=== PATIENT | male | born 1965 | race Caucasian/White ===

== ENCOUNTER 2016-08-03 00:59 | Emergency (ER) | payer OTHER ==
[~2016-08-03 00:59] MED LIST: ATARAX PO; DILANTIN; DILANTIN PO; LORTAB 10/500 T1 TAB
== END 2016-08-03 02:24 | disposition home or self-care (01) ==
LOC: SED 00:59
DX: S16.1XXA Strain of muscle, fascia and tendon at neck level, initial encounter (principal); F41.9 Anxiety disorder, unspecified; F17.210 Nicotine dependence, cigarettes, uncomplicated; X50.9XXA Other and unspecified overexertion or strenuous movements or postures, initial encounter; Y92.009 Unspecified place in unspecified non-institutional (private) residence as the place of occurrence of the external cause
CPT/HCPCS: 96372; 99283; J1885; J3360

== ENCOUNTER 2016-08-28 11:57 | Inpatient (IN) | payer OTHER ==
--- NOTE | ~2016-08-28 | CO ---
Unit #: [id number] #: [id number] Patient: ROSEANN CASTANEDA [id number] [facility]. [place], [place] [address] [id number] I MR#: [id number] NAME: ROSEANN CASTANEDA ROOM: 241 Age: 51 Sex: M Admission Date: 08/28/2016 : 1965 Attending Physician: Franny Rg M.D. Primary Care Physician: Adilene Alvarez M.D. Consultation Date: 08/29/2016 CONSULTATION REPORT HISTORY OF PRESENT ILLNESS Mr. Castaneda is 51-year-old white male with a spontaneous left hip abscess. It is fairly large. He did not note anything that bite him. He said this started out as a small pimple and got larger and now it is a large abscess. He has a history of drug abuse; however, this is in an area that does not appear to be related to his drug habits. PAST MEDICAL HISTORY He has had a previous seizure disorder and psychiatric history as noted. ALLERGIES None. HOME MEDICATIONS None. REVIEW OF SYSTEMS Otherwise is noncontributory. He does smoke one pack per day. PHYSICAL EXAMINATION GENERAL: Cooperative, alert, white male. Oriented x3, in no significant distress. ENT: Clear. There is no jaundice. Pupils equal, reactive to light. CHEST: Grossly clear. CARDIAC: Rhythm is regular. ABDOMEN: Soft, nontender. The area in questions over the left hip is large abscess partially drained in the emergency room with a great amount of purulence. This needs to be opened and cleaned out. PLAN We will go ahead and proceed with doing just that and cleaning up this abscess. Risks had been explained to the patient. He understands. Dictated by... Huan Sun M.D. KEN/jacqui TD: 08/29/2016 06:47 JOB #: [id number] Unit #: [id number] #: [id number] Patient: ROSEANN CASTANEDA CONSULTATION REPORT Page 1 of 1 X Huan Sun MD CONSULTATION REPORT
--- NOTE | ~2016-08-28 | CT90 ---
[facility] A Service of [facility] RADIOLOGY TEXT RESULTS PATIENT: ROSEANN CASTANEDA LOCATION: C2A 241-01 : [birth year] UNIT #: [id number] AGE: [address]: Sarah Estes MD SEX: M ORDER DR: [id number] [facility] [address] [place], [place] [address] [id number] I MR#: [id number] Acc #: [id number] NAME: ROSEANN CASTANEDA : 1965 SEX: M STUDY DATE/TIME: 08/28/2016 15:22 UNIT: C2A ROOM: 241 STUDY DESCRIPTION: CT Lower Ext Lt W Cont Attending Physician: Sarah Estes M.D. Ordering Physician: Norbert Mendieta M.D. Primary Care Physician: Adilene Alvarez M.D. MEDICAL IMAGING REPORT This report is preliminary unless electronic signature is present EXAM CT left hip and pelvis. HISTORY Pain and warmth left hip x1 week, heroin abuse, seizures. FINDINGS Axial images performed through the left hip and pelvis following IV contrast. Markers were placed corresponding to the area of redness and swelling. This CT exam was performed with one or more of the following radiation dose reduction techniques: automatic exposure control, adjustment of mA and/or kV according to patient size, and iterative reconstruction. The examination demonstrates skin thickening and extensive subcutaneous edema and reticulation along the lateral aspect of the left hip and pelvis. Centered just above the left hip joint, there is a 5.1 x 1.6 x 3.9 cm area of subtle decreased attenuation with questionable early peripheral enhancement that could represent an area of phlegmon and/or developing abscess but a discrete well-defined drainable fluid collection is not seen. The inflammatory process appears confined to the subcutaneous space. Underlying gluteal musculature appears normal. The hip joints appear normal. The internal pelvic structures unremarkable. IMPRESSION Extensive soft tissue swelling and edema overlying the lateral hip. Findings most compatible with extensive cellulitis. There is a subtle area of low attenuation within the subcutaneous tissues measuring about 5.1 x 1.6 x 3.9 cm, could represent a developing phlegmon or early abscess but a discrete drainable or well defined drainable fluid collection is not identified. No deep compartment involvement. [facility]. [facility] A Service of [facility] RADIOLOGY TEXT RESULTS PATIENT: ROSEANN CASTANEDA LOCATION: [facility] 241-01 : [birth year] UNIT #: [id number] AGE: [address]: Sarah Estes MD SEX: M ORDER DR: Dictated by... Catalino Borja M.D. THIS IS AN ELECTRONICALLY VERIFIED REPORT Catalino Borja M.D. at 08/28/2016 8:29 PM Monica TD: 08/28/2016 19:58 JOB #: [id number] MEDICAL IMAGING REPORT Page 1 of 1 COPY
--- NOTE | ~2016-08-28 | DS ---
Unit #: [id number] #: [id number] Patient: ROSEANN CASTANEDA [id number] [address] [place], [place] [address] [id number] I MR#: [id number] NAME: ROSEANN CASTANEDA ROOM: 241 Age: 51 Sex: M Admission Date: 08/28/2016 : 1965 Discharge Date: 08/31/2016 Attending Physician: Franny Rg M.D. Primary Care Physician: Adilene Alvarez M.D. DISCHARGE SUMMARY ADMISSION DIAGNOSES 1. Left hip abscess/cellulitis. 2. Sepsis. 3. History of IV drug use. 4. History of seizures. 5. Tobacco abuse. DISCHARGE DIAGNOSES 1. Status post incision and drainage of left hip abscess. 2. Methicillin-resistant Staphylococcus aureus infection left hip. 3. Sepsis, resolved. 4. History of intravenous drug abuse. 5. Polysubstance abuse. 6. Tobacco use. 7. History of seizures. CONSULTANTS Dr. King Morse, [facility]. PROCEDURES 1. Midline placement for venous access. 2. I and D left hip abscess with sharp excisional debridement of skin and subcutaneous tissue and muscle 10 x 8 cm area. DIAGNOSTIC STUDIES LABORATORY: WBC 9.7, hemoglobin 12.8, hematocrit 37.8, platelets 301,000. Sodium 138, potassium 3.9, chloride 103, CO2 28, glucose 116, BUN 9, creatinine 0.9, calcium 8.2, AST 22, ALT 29, alkaline phosphatase 66, bili total 0.7, total protein 6, albumin 2.9. Urine culture final - No growth at 24 hours. Blood cultures preliminary x2 - No growth after 24 hours. Aerobic left hip swab - MRSA 2+. Anaerobic culture preliminary - No growth of anaerobes at 48 hours. HIV antigen antibody screen nonreactive. Anatomical pathology report abscess left hip debridement - Focally ulcerated segment of skin and subcutaneous tissue with acute inflammatory cell infiltrate with abscess formation. Urine drug screen positive for amphetamines and opiates. Lactic acid 0.8. IMAGING: CT of the left hip and pelvis with IV contrast. Impression - Extensive soft tissue swelling and edema overlying the lateral hip. Findings most compatible with extensive cellulitis. Subtle area of low attenuation within the subcutaneous tissues measuring about 5.1 x 1.6 x 3.9 cm could represent a developing phlegmon or early abscess, but a discrete drainable or well-defined drainable fluid collection is not identified. No deep compartment involvement. Unit #: [id number] #: [id number] Patient: ROSEANN CASTANEDA DISCHARGE MEDICATIONS Bactrim DS 1 p.o. b.i.d. x10 days (#20, no refills). DRESSING CHANGE ORDERS Dakin's wet-to-dry, 1/4 strength, b.i.d. using Fluff to pack - Sent bedside supply home with the patient. DISCHARGE INSTRUCTIONS 1. Continue dressing changes per order of [facility]. Patient is to follow up in Dr. Sun's wound clinic ([phone]) in 7-10 days. 2. Discontinue midline prior to discharge. 3. The patient has been given an order for [facility] health, if the patient is agreeable, to follow for wound care and dressing supplies. 4. The patient is to be provided initial amount of dressing supplies prior to discharge. 5. This patient is to call and schedule followup appointment with his primary care physician in 7 days. CONDITION Stable. DISPOSITION Home. HOSPITAL COURSE The patient is a 51-year-old male who presented to [facility] on the day of admission with complaints of an increasingly red, swollen and painful area on the left hip. Additionally, he complained that it was draining yellow pus. The patient was noted to have a white blood cell count of 13.6, pulse of 92, and temperature was 98.2. The patient was started on IV vancomycin and received one liter of normal saline in the emergency department. I and D was done in the emergency department, and packing was placed there, as well. The patient was admitted for further evaluation and management of left hip abscess with cellulitis, as well as sepsis. Please refer to history and physician report for complete details. Patient continued to be followed by [facility] for evaluation and management of left hip abscess. The patient progressed well and is afebrile with stable vital signs at this time. The patient has been evaluated by Dr. Morse this morning. The patient has also been evaluated by the hospitalist service in discussion with Dr. Rg. Patient is stable and cleared for discharge home with discharge instructions and followup as dictated above. Dictated by... Vida Morris A.P.R.N. for Joel Saba/erich TD: 09/02/2016 12:12 JOB #: [id number] Unit #: [id number] #: [id number] Patient: ROSEANN CASTANEDA DISCHARGE SUMMARY Page 1 of 1 X Vida Morris APRN X DISCHARGE SUMMARY
--- NOTE | ~2016-08-28 | OR ---
Unit #: [id number] #: [id number] Patient: ROSEANN CASTANEDA [id number] [address] [place], [place] [address] [id number] I MR#: [id number] NAME: ROSEANN CASTANEDA ROOM: 241 Date of Procedure: 08/29/2016 Admission Date: 08/28/2016 Surgeon: King Morse M.D. : 1965 Attending Physician: Franny Rg M.D. Primary Care Physician: Adilene Alvarez M.D. OPERATIVE REPORT PREOPERATIVE DIAGNOSIS Abscess, left hip. POSTOPERATIVE DIAGNOSIS Abscess, left hip. PROCEDURE PERFORMED Incision and drainage of left hip abscess with sharp excisional debridement of skin and subcutaneous tissue, and muscle 10 x 8 cm area. ANESTHESIA Monitored anesthesia care. FINDINGS The patient was found to have a large abscess with necrotic tissue present in the area of the left hip. They were sharply debrided back to viable tissue. SPECIMENS Sent to microbiology and pathology. COMPLICATIONS None apparent. CONDITION The patient tolerated the procedure well. INDICATIONS FOR PROCEDURE The patient is a 51-year-old white male, who developed an abscess over the last several days of the left hip area. A CT scan confirmed this. He presents at this time for incision and drainage and debridement. DESCRIPTION OF PROCEDURE After obtaining informed consent as well as receiving preoperative antibiotics, the patient was brought to the operating room and after adequate general LMA anesthesia was obtained, he was carefully placed into the right lateral decubitus position with left side up and right side down. The patient was secured with a beanbag. An axillary roll was placed and all extremities were manipulated very carefully and all extremities were carefully padded. The left hip area was prepped and draped in a sterile fashion. An incision was made over the area of the abscess. A large cavity was entered. Cultures were sent. An incision Unit #: [id number] #: [id number] Patient: ROSEANN CASTANEDA was made circumferentially with a scalpel and was taken down through the skin and subcutaneous tissues with scalpel and was sharply debrided as was some of the underlying musculature. There was necrotic tissue present. Debridement was taken back to viable tissue circumferentially. The wound was irrigated. Hemostasis was obtained with the Bovie. All areas were infiltrated with 0.5% Marcaine plain local anesthesia. The incision was packed with a saline soaked fluffs as well as covered with a dry dressing and then tape. Needle counts, sponge counts, and instrument counts were all correct as reported by the scrub nurse x2. The patient went from the operating room to recovery room in stable condition. Dictated by... Joel Goodman/jacqui TD: 08/30/2016 02:11 JOB #: [id number] CC: [facility] OPERATIVE REPORT Page 1 of 1 X King Morse MD X PROCEDURE OPERATIVE NOTE
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
[2016-08-28 12:52] LABS: BASOPHIL# 0.1 X10e3 (0-0.3); BASOPHIL% 0.8 % (0-2.5); EOSINOPHIL# 0.1 X10e3 (0-0.7); EOSINOPHIL% 0.7 % (0.0-7.0); HEMATOCRIT 43.5 % (38.0-50.0); HEMOGLOBIN 14.8 gm/dL (13.0-16.0); LYMPHOCYTE# 2.1 X10e3 (1.0-3.5); LYMPHOCYTE% 15.7 % (17.0-45.0); MEAN CELL VOLUME 88.3 FL (83-96); MEAN CORPUSCULAR HEMOGLOBIN 30.1 PG (28-34); MEAN CORPUSCULAR HGB CONC 34.1 g/dL (30-36); MEAN PLATELET VOLUME 6.6 FL (6.5-11.5); MONOCYTE# 1.6 X10e3 (0-1.0); MONOCYTE% 11.8 % (3.0-12.0); NEUTROPHIL# 9.6 X10e3 (1.5-7.1); PLATELET COUNT 294 X10e3 (140-420); RED BLOOD COUNT 4.93 X10e (3.90-5.60); RED CELL DISTRIBUTION WIDTH 13.1 % (11.0-15.5); WHITE BLOOD COUNT 13.6 X10e3 (4.0-10.5)
[2016-08-28 13:01] LABS: DIFF IND NO
[2016-08-28 13:36] LABS: ALBUMIN SERUM 3.5 g/dL (3.5-5.0); BILIRUBIN, DIRECT 0.1 mg/dL (0.0-0.2); BILIRUBIN,INDIRECT 0.4 mg/dL (0.0-0.9); BILIRUBIN,TOTAL 0.5 mg/dL (0.2-2.0); BUN/CREATININE RATIO 18.75; CALCIUM SERUM 8.9 mg/dL (8.4-10.2); CREATININE SERUM 0.8 mg/dL (0.6-1.4); GLOM FILT RATE Estimated 104.9 mL/min (>60); POTASSIUM 4.3 mmol/L (3.5-5.1); PROTEIN TOTAL SERUM 7.1 g/dL (6.0-8.3)
[2016-08-28] MEDS ORDERED: NO MEDICATIONS (14:13)
[2016-08-28 21:53] LABS: URINE APPEARANCE CLEAR; URINE BILIRUBIN NEG (NEG); URINE BLOOD NEG (NEG); URINE COLOR YELLOW; URINE GLUCOSE NEG (NEG); URINE KETONE NEG (NEG); URINE LEUKOCYTE ESTERASE NEG (NEG); URINE NITRATE NEG (NEG); URINE PH 7.5 (5-8); URINE PROTEIN NEG (NEG); URINE SPECIFIC GRAVITY 1.023 (1.003-1.035)
[2016-08-28 22:07] LABS: AMPHETAMINE POS (NEG); BARBITURATES NEG (NEG); BENZODIAZEPINES NEG (NEG); COCAINE NEG (NEG); MARIJUANA NEG (NEG); OPIATES POS (NEG); TRICYCLIC ANTIDEPRESSANTS NEG (NEG); U METHADONE NEG (NEG)
[2016-08-29 05:24] LABS: HEMOGLOBIN 13.8 gm/dL (13.0-16.0); MEAN CELL VOLUME 88.6 FL (83-96); MEAN CORPUSCULAR HEMOGLOBIN 29.9 PG (28-34); MEAN CORPUSCULAR HGB CONC 33.7 g/dL (30-36); MEAN PLATELET VOLUME 6.7 FL (6.5-11.5); RED BLOOD COUNT 4.63 X10e (3.90-5.60); RED CELL DISTRIBUTION WIDTH 13.3 % (11.0-15.5); WHITE BLOOD COUNT 9.3 X10e3 (4.0-10.5)
[2016-08-29 06:27] LABS: BUN/CREATININE RATIO 16.25; CALCIUM SERUM 8.5 mg/dL (8.4-10.2); CREATININE SERUM 0.8 mg/dL (0.6-1.4); GLOM FILT RATE Estimated 104.9 mL/min (>60); POTASSIUM 4.7 mmol/L (3.5-5.1)
[2016-08-30 01:56] LABS: BASOPHIL# 0.1 X10e3 (0-0.3); BASOPHIL% 0.7 % (0-2.5); EOSINOPHIL# 0.3 X10e3 (0-0.7); EOSINOPHIL% 2.5 % (0.0-7.0); HEMOGLOBIN 12.8 gm/dL (13.0-16.0); LYMPHOCYTE# 2.9 X10e3 (1.0-3.5); LYMPHOCYTE% 28.7 % (17.0-45.0); MEAN CELL VOLUME 88.6 FL (83-96); MEAN CORPUSCULAR HEMOGLOBIN 30.6 PG (28-34); MEAN CORPUSCULAR HGB CONC 34.6 g/dL (30-36); MEAN PLATELET VOLUME 6.8 FL (6.5-11.5); MONOCYTE# 0.9 X10e3 (0-1.0); MONOCYTE% 8.5 % (3.0-12.0); NEUTROPHIL# 6.1 X10e3 (1.5-7.1); NEUTROPHIL% 59.6 % (40-75); PLATELET COUNT 289 X10e3 (140-420); RED BLOOD COUNT 4.17 X10e (3.90-5.60); RED CELL DISTRIBUTION WIDTH 12.8 % (11.0-15.5); WHITE BLOOD COUNT 10.2 X10e3 (4.0-10.5)
[2016-08-30 02:01] LABS: DIFF IND NO
[2016-08-30 02:22] LABS: ALBUMIN SERUM 2.8 g/dL (3.5-5.0); BILIRUBIN,TOTAL 0.8 mg/dL (0.2-2.0); BUN/CREATININE RATIO 13.33; CREATININE SERUM 0.9 mg/dL (0.6-1.4); GLOM FILT RATE Estimated 99.9 mL/min (>60); POTASSIUM 3.9 mmol/L (3.5-5.1); PROTEIN TOTAL SERUM 5.8 g/dL (6.0-8.3)
[2016-08-31 06:37] LABS: HEMATOCRIT 37.8 % (38.0-50.0); HEMOGLOBIN 12.8 gm/dL (13.0-16.0); MEAN CELL VOLUME 89.7 FL (83-96); MEAN CORPUSCULAR HEMOGLOBIN 30.4 PG (28-34); MEAN CORPUSCULAR HGB CONC 33.9 g/dL (30-36); MEAN PLATELET VOLUME 6.8 FL (6.5-11.5); RED BLOOD COUNT 4.21 X10e (3.90-5.60); WHITE BLOOD COUNT 9.7 X10e3 (4.0-10.5)
[2016-08-31 07:07] LABS: ALBUMIN SERUM 2.9 g/dL (3.5-5.0); BILIRUBIN,TOTAL 0.7 mg/dL (0.2-2.0); CALCIUM SERUM 8.2 mg/dL (8.4-10.2); CREATININE SERUM 0.9 mg/dL (0.6-1.4); GLOM FILT RATE Estimated 99.9 mL/min (>60); POTASSIUM 3.9 mmol/L (3.5-5.1)
[2016-08-31] MEDS ORDERED: BACTRIM DS TAB1 EACH PO (14:05)
[2016-09-02 19:31] LABS: HA AB IGM (HEPPAN) Nonreactive (()); HB CORE AB IGM (HEPPAN) Nonreactive (Nonreactive); HB S AG (HEPPAN) Nonreactive (Nonreactive); HEP C AB (HEPPAN) Reactive (Nonreactive)
== END 2016-08-31 14:37 | disposition home health service (06) | DRG 854 ==
LOC: CED 11:57 → CEDOF 14:10 → C2A 14:10 → CED 14:25 → CEDOF 14:25 → C2A 14:25 → CEDOF 16:21 → C2A 08-29 07:57
PROVIDERS: Emergency Medicine; Family Medicine; Internal Medicine; Surgery
PROC: 0J9M0ZZ Drainage of Left Upper Leg Subcutaneous Tissue and Fascia, Open Approach (ICD-10-PCS; 2016-08-28)
PROC: 0JBM0ZZ Excision of Left Upper Leg Subcutaneous Tissue and Fascia, Open Approach (ICD-10-PCS; principal; 2016-08-29 12:00)
DX: A41.9 Sepsis, unspecified organism (principal); L02.416 Cutaneous abscess of left lower limb; L03.116 Cellulitis of left lower limb; G40.909 Epilepsy, unspecified, not intractable, without status epilepticus; F17.210 Nicotine dependence, cigarettes, uncomplicated; F15.10 Other stimulant abuse, uncomplicated; B95.62 Methicillin resistant Staphylococcus aureus infection as the cause of diseases classified elsewhere
CPT/HCPCS: 10060; 73701-LT; 80048; 80053; 80074; 80076; 80202; 80307; 81003; 83605; 85025; 85027; 87040; 87070; 87075; 87077; 87086; 87186; 87205; 87522; 87806; 88304; 96361; 96365; 96375; 96376; 99284; J1170; J1650; J1885; J2250; J2270; J2405; J2543; J3010; J3370; Q9967